=== PATIENT | female | born 1935 | race Caucasian/White ===

== ENCOUNTER 2018-12-28 20:52 | Inpatient (IN) | payer OTHER ==
[~2018-12-28] VITALS: Ht 157.5 cm; Wt 75.5 kg
[2018-12-28 21:31] VITALS: BP_SYST 162
[2018-12-28] MEDS ORDERED: NACL 0.9% 1,000 ML IV ONE (22:15)
[2018-12-28 22:38] LABS: BASOPHILS % (AUTO) 0.2 % (0.0-2.0); EOSINOPHILS % (AUTO) 0.3 % (0.0-4.0); HEMATOCRIT 37.8 % (36-48); HEMOGLOBIN 12.3 g/dL (12.0-16.0); LYMPHOCYTES # (AUTO) 0.7 K/uL (1.0-5.5); LYMPHOCYTES % (AUTO) 10.5 % (20.5-51.5); MEAN CORPUSCULAR HEMOGLOBIN 34 pg (27-31); MEAN CORPUSCULAR HGB CONC 32 % (32-36); MEAN CORPUSCULAR VOLUME 104 fL (79.0-98.0); MONOCYTES # (AUTO) 0.3 K/uL (0.0-1.0); MONOCYTES % (AUTO) 4.5 % (1.7-9.3); NEUTROPHILS # (AUTO) 5.8 K/uL (1.8-7.7); NEUTROPHILS % (AUTO) 84.5 % (40.0-70.0); PLATELET COUNT (AUTO) 187 K/uL (130-430); RED BLOOD CELL COUNT(AUTO) 3.64 MIL/uL (4.2-6.2); RED CELL DISTRIBUTION WIDTH 15.5 % (9.0-15.0); WHITE BLOOD COUNT (AUTO) 6.9 K/uL (4.8-10.8)
[2018-12-28 22:47] LABS: ANION GAP 6 (5-15); CALCIUM 9.1 mg/dL (8.4-11.0); CHLORIDE 102 mmol/L (98-107); CREATININE 1.22 mg/dL (0.55-1.30); GLUCOSE 204 mg/dL (70-99); POTASSIUM 3.7 mmol/L (3.5-5.1); SODIUM SERUM 135 mmol/L (136-145); UREA NITROGEN, BLOOD 20 mg/dL (8-21)
[2018-12-28 22:48] LABS: INR 1.1 (0.8-1.2); PROTHROMBIN TIME 11.1 SECS (9.5-12.5)
[2018-12-28 22:52] LABS: ALANINE AMINOTRANSFERASE 17 U/L (12-78); ALBUMIN 3.2 g/dL (3.4-4.8); ASPARTATE AMINOTRANSFERASE 22 U/L (10-37); TOTAL BILIRUBIN 0.7 mg/dL (0.0-1.0)
[2018-12-28] MEDS ORDERED: ALBU2.5V7 INH (23:53)
[2018-12-28] MEDS ORDERED: LIP40 PO (23:54)
[2018-12-28] MEDS ORDERED: BENZ-16 PO (23:55)
[2018-12-28] MEDS ORDERED: LOT1%CR30 TP (23:57)
[2018-12-28] MEDS ORDERED: DOCU-144 PO (23:57)
[2018-12-28] MEDS ORDERED: APIX2.5T PO (23:58)
[2018-12-28] MEDS ORDERED: IRON1CAP18 PO (23:58)
[2018-12-28] MEDS ORDERED: VANC50SO PO (23:59)
[2018-12-29] VITALS (24 sets, daily range): BP systolic 99–224
[2018-12-29] MEDS ORDERED: FOLI0.4T2 PO
[2018-12-29] MEDS ORDERED: FURO-150 PO (00:02)
[2018-12-29] MEDS ORDERED: GABA-531 PO (00:02)
[2018-12-29] MEDS ORDERED: HYDR-4039 PO (00:03)
[2018-12-29] MEDS ORDERED: ONDA4TAB5 PO (00:16)
[2018-12-29] MEDS ORDERED: SENN8.6T19 PO (00:16)
[2018-12-29] MEDS ORDERED: FERR159T2 PO (00:16)
[2018-12-29] MEDS ORDERED: ALBU8.5H8 INH (00:16)
[2018-12-29] MEDS ORDERED: NITR1PAT76 TD (00:16)
[2018-12-29] MEDS ORDERED: POLY17PO4 PO (00:16)
[2018-12-29] MEDS ORDERED: PRO40 PO (00:16)
[2018-12-29] MEDS ORDERED: MIRT7.5T11 PO (00:16)
[2018-12-29] MEDS ORDERED: METO25TA3 PO (00:16)
[2018-12-29] MEDS ORDERED: EPOE1VIA13 SUBCUT (00:16)
[2018-12-29] MEDS ORDERED: LINA5TAB2 PO (00:18)
[2018-12-29] MEDS ORDERED: TEMAZEPAM 15 MG CAPSULE PO PRN (00:30)
[2018-12-29] MEDS ORDERED: ONDANSETRON HCL 4 MG/2 ML VIAL IVP PRN ×2 (00:30→06:30)
[2018-12-29] MEDS ORDERED: METOCLOPRAMIDE HCL 10 MG/2 ML VIAL IVP PRN (00:30)
[2018-12-29] MEDS ORDERED: LABETALOL 100 MG/ 20ML VIAL ONE (03:16)
[2018-12-29] MEDS ORDERED: ACETAMINOPHEN 325 MG TABLET PO PRN (06:30)
[2018-12-29] MEDS ORDERED: ALBUTEROL SULFATE 0.083% 2.5 MG/3 ML VIAL.NEB INH PRN ×2 (06:30→06:45)
[2018-12-29] MEDS ORDERED: BENZONATATE 100 MG CAPSULE (TESSALON) PO SCH (06:45)
[2018-12-29] MEDS ORDERED: INSULIN REGULAR, HUMAN 100 UNITS/ML, 10 ML VIAL (novoLIN R) SUBCUT PRN (06:45)
[2018-12-29] MEDS ORDERED: LORazepam 2 MG/ML VIAL ONE (07:38)
[2018-12-29] MEDS ORDERED: ENALAPRILAT DIHYDRATE 1.25 MG/ML VIAL ONE (07:39)
[2018-12-29] MEDS: ENALAPRILAT DIHYDRATE 1.25 MG/ML VIAL IVP PRN (08:45)
[2018-12-29] MEDS: POLYETHYLENE GLYCOL 3350, 17 GM/ POWD.PACK PO SCH (09:00)
[2018-12-29] MEDS: METOPROLOL SUCCINATE 25 MG TAB.SR.24H (TOPROL XL) PO SCH ×2 (09:00→21:00)
[2018-12-29] MEDS ORDERED: APIXABAN 2.5 MG TABLET PO SCH (09:00)
[2018-12-29] MEDS: PANTOPRAZOLE SODIUM 40 MG TAB PO SCH (09:00)
[2018-12-29] MEDS: DOCUSATE SODIUM 100 MG CAPSULE PO SCH (09:00)
[2018-12-29] MEDS ORDERED: FUROSEMIDE 20 MG TABLET PO SCH (09:00)
[2018-12-29] MEDS: hydrALAZINE HCL 25 MG TABLET PO SCH ×2 (09:00→21:00)
[2018-12-29] MEDS: LABETALOL 100 MG/ 20ML VIAL IVP PRN (09:38)
[2018-12-29] MEDS ORDERED: DEXTROSE 50% JECT 50 ML DISP.SYRIN IVP PRN (09:45)
[2018-12-29 10:49] LABS: CHLORIDE 98 mmol/L (98-107); POTASSIUM 3.7 mmol/L (3.5-5.1); SODIUM SERUM 139 mmol/L (136-145)
[2018-12-29 10:50] LABS: ANION GAP 21 (5-15); CALCIUM 8.8 mg/dL (8.4-11.0); CREATININE 1.48 mg/dL (0.55-1.30); GLUCOSE 214 mg/dL (70-99); HEMATOCRIT 38.8 % (36-48); HEMOGLOBIN 12.5 g/dL (12.0-16.0); MEAN CORPUSCULAR HEMOGLOBIN 34 pg (27-31); MEAN CORPUSCULAR HGB CONC 32 % (32-36); MEAN CORPUSCULAR VOLUME 105 fL (79.0-98.0); NEUTROPHILS % (AUTO) 88.4 % (40.0-70.0); PLATELET COUNT (AUTO) 196 K/uL (130-430); RED BLOOD CELL COUNT(AUTO) 3.69 MIL/uL (4.2-6.2); RED CELL DISTRIBUTION WIDTH 15.7 % (9.0-15.0); UREA NITROGEN, BLOOD 19 mg/dL (8-21); WHITE BLOOD COUNT (AUTO) 7.1 K/uL (4.8-10.8)
[2018-12-29 10:51] LABS: BASOPHILS % (AUTO) 0.1 % (0.0-2.0); EOSINOPHILS % (AUTO) 0.1 % (0.0-4.0); LYMPHOCYTES # (AUTO) 0.6 K/uL (1.0-5.5); LYMPHOCYTES % (AUTO) 7.8 % (20.5-51.5); MONOCYTES # (AUTO) 0.3 K/uL (0.0-1.0); MONOCYTES % (AUTO) 3.6 % (1.7-9.3); NEUTROPHILS # (AUTO) 6.3 K/uL (1.8-7.7)
[2018-12-29 10:59] LABS: ALANINE AMINOTRANSFERASE 16 U/L (12-78); ASPARTATE AMINOTRANSFERASE 24 U/L (10-37); TOTAL BILIRUBIN 0.8 mg/dL (0.0-1.0)
[2018-12-29 11:00] LABS: ALBUMIN 3.2 g/dL (3.4-4.8)
[2018-12-29 11:15] LABS: CHOLESTEROL 118 mg/dL (<200); HDL CHOLESTEROL 33 mg/dL (>55); LDL CHOLESTEROL 76 mg/dL (<100); TRIGLYCERIDES 91 mg/dL (30-150)
[2018-12-29] MEDS: NITROGLYCERIN 0.4 MG/HR PATCH.TD24 TD SCH (12:14)
[2018-12-29] MEDS: LORazepam 2 MG/ML VIAL IVP PRN ×4 (12:36→23:13)
[2018-12-29] MEDS ORDERED: FUROSEMIDE 20 MG/2 ML VIAL IVP ONE (13:30)
[2018-12-29] MEDS ORDERED: ACETAMINOPHEN 650 MG SUPP.RECT RC PRN (14:30)
[2018-12-29] MEDS: CLOTRIMAZOLE 1% TOPICAL CREAM 15 GM TP SCH ×2 (15:56→21:00)
[2018-12-29] MEDS: D5NS 1,000 ML IV SCH (15:59)
[2018-12-29] MEDS: INSULIN REGULAR, HUMAN 100 UNITS/ML, 10 ML VIAL (novoLIN R) SUBCUT PRN (18:35)
[2018-12-29] MEDS: GABAPENTIN 300 MG CAPSULE PO SCH (21:00)
[2018-12-29] MEDS: ATORVASTATIN 20 MG TABLET PO SCH (21:00)
[2018-12-29] MEDS: APIXABAN 2.5 MG TABLET PO SCH (21:00)
[2018-12-29] MEDS: FUROSEMIDE 20 MG/2 ML VIAL IVP SCH (21:00)
[2018-12-29] MEDS: levETIRAcetam 250 MG in NS 100 ML IV SCH (21:19)
[2018-12-30] VITALS (23 sets, daily range): BP systolic 101–151
[2018-12-30] MEDS: LORazepam 2 MG/ML VIAL IVP PRN ×3 (01:15→05:08)
[2018-12-30 02:36] LABS: BILIRUBIN,URINE 1+ (NEGATIVE); BLOOD, URINE 3+ (NEGATIVE); CLARITY/URINE HAZY (CLEAR); COLOR,URINE YELLOW (YELLOW); GLUCOSE,URINE NEGATIVE (NEGATIVE); KETONES,URINE NEGATIVE (NEGATIVE); LEUKOCYTE ESTERASE ,URINE TRACE (NEGATIVE); NITRITE, URINE NEGATIVE (NEGATIVE); PH,URINE 6.5 (5.0-8.0); PROTEIN URINE 3+ (NEGATIVE); UROBILINOGEN,URINE 0.2 (0.2-1.0)
[2018-12-30 02:47] LABS: RBC,URINE >100 /HPF (0-3)
[2018-12-30 02:48] LABS: BACTERIA,URINE FEW /HPF (None Seen); HYALINE CASTS, URINE 0-10 /LPF (None Seen)
[2018-12-30] MEDS: D5NS 1,000 ML IV SCH (05:08)
[2018-12-30] MEDS: INSULIN REGULAR, HUMAN 100 UNITS/ML, 10 ML VIAL (novoLIN R) SUBCUT PRN (05:15)
[2018-12-30] MEDS ORDERED: 0.45% NS 500 ML IV ONE (08:30)
[2018-12-30] MEDS: LISINOPRIL 5 MG TABLET PO SCH (09:00)
[2018-12-30] MEDS: POLYETHYLENE GLYCOL 3350, 17 GM/ POWD.PACK PO SCH (09:00)
[2018-12-30] MEDS: PANTOPRAZOLE SODIUM 40 MG TAB PO SCH (09:00)
[2018-12-30] MEDS: DOCUSATE SODIUM 100 MG CAPSULE PO SCH (09:00)
[2018-12-30] MEDS: hydrALAZINE HCL 25 MG TABLET PO SCH ×2 (09:00→21:00)
[2018-12-30] MEDS: APIXABAN 2.5 MG TABLET PO SCH ×2 (09:00→21:00)
[2018-12-30] MEDS: CLOTRIMAZOLE 1% TOPICAL CREAM 15 GM TP SCH ×2 (09:00→21:00)
[2018-12-30] MEDS: METOPROLOL SUCCINATE 25 MG TAB.SR.24H (TOPROL XL) PO SCH ×2 (09:00→21:00)
[2018-12-30] MEDS: levETIRAcetam 250 MG in NS 100 ML IV SCH ×2 (09:12→21:25)
[2018-12-30] MEDS: FUROSEMIDE 20 MG/2 ML VIAL IVP SCH (09:13)
[2018-12-30] MEDS: NITROGLYCERIN 0.4 MG/HR PATCH.TD24 TD SCH ×2 (09:13→09:59)
[2018-12-30] MEDS: cefTRIAXone 1 GM in D5W 50 ML IV SCH (09:58)
[2018-12-30] MEDS: ATORVASTATIN 20 MG TABLET PO SCH (21:00)
[2018-12-30] MEDS: GABAPENTIN 300 MG CAPSULE PO SCH (21:00)
[2018-12-31] VITALS (24 sets, daily range): BP systolic 116–156
[2018-12-31 07:23] LABS: ANION GAP 11 (5-15); CALCIUM 8.8 mg/dL (8.4-11.0); CHLORIDE 104 mmol/L (98-107); CREATININE 1.95 mg/dL (0.55-1.30); GLUCOSE 95 mg/dL (70-99); POTASSIUM 4.1 mmol/L (3.5-5.1); SODIUM SERUM 142 mmol/L (136-145); UREA NITROGEN, BLOOD 33 mg/dL (8-21)
[2018-12-31 07:36] LABS: ALANINE AMINOTRANSFERASE 13 U/L (12-78); ALBUMIN 2.6 g/dL (3.4-4.8); ASPARTATE AMINOTRANSFERASE 23 U/L (10-37); TOTAL BILIRUBIN 0.7 mg/dL (0.0-1.0)
[2018-12-31] MEDS: cefTRIAXone 1 GM in D5W 50 ML IV SCH (08:40)
[2018-12-31] MEDS: hydrALAZINE HCL 25 MG TABLET PO SCH ×2 (09:00→21:27)
[2018-12-31] MEDS: DOCUSATE SODIUM 100 MG CAPSULE PO SCH (09:00)
[2018-12-31] MEDS: LISINOPRIL 5 MG TABLET PO SCH (09:00)
[2018-12-31] MEDS: POLYETHYLENE GLYCOL 3350, 17 GM/ POWD.PACK PO SCH (09:00)
[2018-12-31] MEDS: CLOTRIMAZOLE 1% TOPICAL CREAM 15 GM TP SCH ×2 (09:00→21:31)
[2018-12-31] MEDS ORDERED: FUROSEMIDE 20 MG/2 ML VIAL IVP SCH (09:00)
[2018-12-31] MEDS: NITROGLYCERIN 0.4 MG/HR PATCH.TD24 TD SCH (09:00)
[2018-12-31] MEDS: APIXABAN 2.5 MG TABLET PO SCH ×2 (09:00→21:28)
[2018-12-31] MEDS: PANTOPRAZOLE SODIUM 40 MG TAB PO SCH (09:00)
[2018-12-31] MEDS ORDERED: NACL 0.9% 1,000 ML IV ONE (09:00)
[2018-12-31] MEDS: METOPROLOL SUCCINATE 25 MG TAB.SR.24H (TOPROL XL) PO SCH ×2 (09:00→21:29)
[2018-12-31] MEDS: levETIRAcetam 250 MG in NS 100 ML IV SCH ×2 (09:18→21:17)
[2018-12-31 09:44] LABS: BASOPHILS % (AUTO) 0.2 % (0.0-2.0); HEMATOCRIT 33.4 % (36-48); LYMPHOCYTES % (AUTO) 13.3 % (20.5-51.5); MEAN CORPUSCULAR HEMOGLOBIN 34 pg (27-31); MEAN CORPUSCULAR HGB CONC 33 % (32-36); MEAN CORPUSCULAR VOLUME 104 fL (79.0-98.0); NEUTROPHILS # (AUTO) 4.8 K/uL (1.8-7.7); NEUTROPHILS % (AUTO) 78.5 % (40.0-70.0); PLATELET COUNT (AUTO) 163 K/uL (130-430); RED BLOOD CELL COUNT(AUTO) 3.21 MIL/uL (4.2-6.2); RED CELL DISTRIBUTION WIDTH 15.2 % (9.0-15.0); WHITE BLOOD COUNT (AUTO) 6.1 K/uL (4.8-10.8)
[2018-12-31 09:45] LABS: EOSINOPHILS # (AUTO) 0.1 K/uL (0.0-0.4); LYMPHOCYTES # (AUTO) 0.8 K/uL (1.0-5.5); MONOCYTES # (AUTO) 0.4 K/uL (0.0-1.0)
[2018-12-31] MEDS: NACL 0.9% 1,000 ML IV SCH ×2 (11:11→21:18)
[2018-12-31] MEDS: ATORVASTATIN 20 MG TABLET PO SCH (21:26)
[2018-12-31] MEDS: GABAPENTIN 300 MG CAPSULE PO SCH (21:26)
[2019-01-01] VITALS (16 sets, daily range): BP systolic 154–195
[2019-01-01] MEDS: NACL 0.9% 1,000 ML IV SCH ×2 (05:18→16:20)
[2019-01-01] MEDS: ENALAPRILAT DIHYDRATE 1.25 MG/ML VIAL IVP PRN ×3 (05:18→17:57)
[2019-01-01 07:28] LABS: ALANINE AMINOTRANSFERASE 13 U/L (12-78); ALBUMIN 2.5 g/dL (3.4-4.8); ANION GAP 9 (5-15); ASPARTATE AMINOTRANSFERASE 23 U/L (10-37); CALCIUM 8.7 mg/dL (8.4-11.0); CHLORIDE 105 mmol/L (98-107); CREATININE 1.42 mg/dL (0.55-1.30); GLUCOSE 106 mg/dL (70-99); POTASSIUM 3.8 mmol/L (3.5-5.1); SODIUM SERUM 140 mmol/L (136-145); TOTAL BILIRUBIN 0.8 mg/dL (0.0-1.0); UREA NITROGEN, BLOOD 33 mg/dL (8-21)
[2019-01-01] MEDS: APIXABAN 2.5 MG TABLET PO SCH ×2 (08:33→23:26)
[2019-01-01 08:34] LABS: RED BLOOD CELL COUNT(AUTO) 3.13 MIL/uL (4.2-6.2)
[2019-01-01] MEDS: DOCUSATE SODIUM 100 MG CAPSULE PO SCH (08:34)
[2019-01-01] MEDS: METOPROLOL SUCCINATE 25 MG TAB.SR.24H (TOPROL XL) PO SCH ×2 (08:34→23:17)
[2019-01-01] MEDS: PANTOPRAZOLE SODIUM 40 MG TAB PO SCH (08:34)
[2019-01-01] MEDS: hydrALAZINE HCL 25 MG TABLET PO SCH ×2 (08:34→23:16)
[2019-01-01] MEDS: LISINOPRIL 5 MG TABLET PO SCH (08:34)
[2019-01-01 08:35] LABS: HEMATOCRIT 32.5 % (36-48); HEMOGLOBIN 10.8 g/dL (12.0-16.0); MEAN CORPUSCULAR HEMOGLOBIN 35 pg (27-31); MEAN CORPUSCULAR HGB CONC 33 % (32-36); MEAN CORPUSCULAR VOLUME 104 fL (79.0-98.0); NEUTROPHILS % (AUTO) 80.9 % (40.0-70.0); PLATELET COUNT (AUTO) 174 K/uL (130-430)
[2019-01-01] MEDS: cefTRIAXone 1 GM in D5W 50 ML IV SCH (08:35)
[2019-01-01] MEDS: POLYETHYLENE GLYCOL 3350, 17 GM/ POWD.PACK PO SCH (08:35)
[2019-01-01 08:36] LABS: BASOPHILS % (AUTO) 0.2 % (0.0-2.0); EOSINOPHILS # (AUTO) 0.1 K/uL (0.0-0.4); EOSINOPHILS % (AUTO) 1.4 % (0.0-4.0); LYMPHOCYTES # (AUTO) 0.6 K/uL (1.0-5.5); LYMPHOCYTES % (AUTO) 10.8 % (20.5-51.5); MONOCYTES # (AUTO) 0.4 K/uL (0.0-1.0); MONOCYTES % (AUTO) 6.7 % (1.7-9.3); NEUTROPHILS # (AUTO) 4.9 K/uL (1.8-7.7)
[2019-01-01] MEDS: NITROGLYCERIN 0.4 MG/HR PATCH.TD24 TD SCH (08:37)
[2019-01-01] MEDS: CLOTRIMAZOLE 1% TOPICAL CREAM 15 GM TP SCH ×2 (09:00→23:17)
[2019-01-01] MEDS: levETIRAcetam 250 MG in NS 100 ML IV SCH ×2 (09:34→23:15)
[2019-01-01] MEDS: LABETALOL 100 MG/ 20ML VIAL IVP PRN (16:10)
[2019-01-01] MEDS: ATORVASTATIN 20 MG TABLET PO SCH (23:16)
[2019-01-01] MEDS: GABAPENTIN 300 MG CAPSULE PO SCH (23:16)
[2019-01-01] MEDS: INSULIN REGULAR, HUMAN 100 UNITS/ML, 10 ML VIAL (novoLIN R) SUBCUT PRN (23:22)
[2019-01-01] MEDS: LORazepam 2 MG/ML VIAL IVP PRN (23:44)
[2019-01-02 00:09] VITALS: BP_SYST 166
[2019-01-02] MEDS: NACL 0.9% 1,000 ML IV SCH ×3 (01:17→22:40)
[2019-01-02] MEDS: LABETALOL 100 MG/ 20ML VIAL IVP PRN (01:19)
[2019-01-02 07:17] LABS: ALANINE AMINOTRANSFERASE 13 U/L (12-78); ALBUMIN 2.4 g/dL (3.4-4.8); ANION GAP 2 (5-15); ASPARTATE AMINOTRANSFERASE 23 U/L (10-37); CALCIUM 8.3 mg/dL (8.4-11.0); CHLORIDE 110 mmol/L (98-107); CREATININE 1.19 mg/dL (0.55-1.30); GLUCOSE 142 mg/dL (70-99); POTASSIUM 3.5 mmol/L (3.5-5.1); SODIUM SERUM 139 mmol/L (136-145); TOTAL BILIRUBIN 0.5 mg/dL (0.0-1.0); UREA NITROGEN, BLOOD 23 mg/dL (8-21)
[2019-01-02 07:58] LABS: HEMATOCRIT 30.4 % (36-48); RED BLOOD CELL COUNT(AUTO) 2.93 MIL/uL (4.2-6.2); WHITE BLOOD COUNT (AUTO) 6.3 K/uL (4.8-10.8)
[2019-01-02 07:59] LABS: BASOPHILS % (AUTO) 0.3 % (0.0-2.0); EOSINOPHILS % (AUTO) 0.3 % (0.0-4.0); LYMPHOCYTES # (AUTO) 0.6 K/uL (1.0-5.5); LYMPHOCYTES % (AUTO) 9.8 % (20.5-51.5); MEAN CORPUSCULAR HEMOGLOBIN 34 pg (27-31); MEAN CORPUSCULAR HGB CONC 33 % (32-36); MEAN CORPUSCULAR VOLUME 104 fL (79.0-98.0); MONOCYTES # (AUTO) 0.5 K/uL (0.0-1.0); MONOCYTES % (AUTO) 7.6 % (1.7-9.3); NEUTROPHILS # (AUTO) 5.2 K/uL (1.8-7.7); PLATELET COUNT (AUTO) 185 K/uL (130-430); RED CELL DISTRIBUTION WIDTH 14.8 % (9.0-15.0)
[2019-01-02 08:00] VITALS: BP_SYST 116
[2019-01-02] MEDS: cefTRIAXone 1 GM in D5W 50 ML IV SCH (08:56)
[2019-01-02] MEDS: POLYETHYLENE GLYCOL 3350, 17 GM/ POWD.PACK PO SCH (09:00)
[2019-01-02] MEDS: APIXABAN 2.5 MG TABLET PO SCH ×2 (09:00→22:28)
[2019-01-02] MEDS: DOCUSATE SODIUM 100 MG CAPSULE PO SCH (09:00)
[2019-01-02] MEDS: LISINOPRIL 5 MG TABLET PO SCH (09:00)
[2019-01-02] MEDS: PANTOPRAZOLE SODIUM 40 MG TAB PO SCH (09:00)
[2019-01-02] MEDS: METOPROLOL SUCCINATE 25 MG TAB.SR.24H (TOPROL XL) PO SCH ×2 (09:00→22:29)
[2019-01-02] MEDS: hydrALAZINE HCL 25 MG TABLET PO SCH ×2 (09:00→22:30)
[2019-01-02] MEDS: levETIRAcetam 250 MG in NS 100 ML IV SCH ×2 (09:38→22:40)
[2019-01-02] MEDS: CLOTRIMAZOLE 1% TOPICAL CREAM 15 GM TP SCH ×2 (09:39→21:00)
[2019-01-02] MEDS: NITROGLYCERIN 0.4 MG/HR PATCH.TD24 TD SCH (09:46)
[2019-01-02 12:25] VITALS: BP_SYST 131
[2019-01-02 13:30] VITALS: BP_SYST 131
[2019-01-02 16:32] VITALS: BP_SYST 142
[2019-01-02] MEDS: ATORVASTATIN 20 MG TABLET PO SCH (22:27)
[2019-01-02] MEDS: GABAPENTIN 300 MG CAPSULE PO SCH (22:30)
[2019-01-03 00:54] VITALS: BP_SYST 157
[2019-01-03] MEDS: NACL 0.9% 1,000 ML IV SCH ×2 (05:46→17:00)
[2019-01-03 07:31] LABS: ANION GAP 9 (5-15); CALCIUM 8.2 mg/dL (8.4-11.0); CHLORIDE 113 mmol/L (98-107); CREATININE 1.29 mg/dL (0.55-1.30); GLUCOSE 109 mg/dL (70-99); POTASSIUM 3.7 mmol/L (3.5-5.1); SODIUM SERUM 145 mmol/L (136-145); UREA NITROGEN, BLOOD 21 mg/dL (8-21)
[2019-01-03 07:49] LABS: ALANINE AMINOTRANSFERASE 14 U/L (12-78); ALBUMIN 2.3 g/dL (3.4-4.8); ASPARTATE AMINOTRANSFERASE 21 U/L (10-37); TOTAL BILIRUBIN 0.4 mg/dL (0.0-1.0)
[2019-01-03] MEDS: cefTRIAXone 1 GM in D5W 50 ML IV SCH (08:34)
[2019-01-03] MEDS: NITROGLYCERIN 0.4 MG/HR PATCH.TD24 TD SCH (08:35)
[2019-01-03] MEDS: POLYETHYLENE GLYCOL 3350, 17 GM/ POWD.PACK PO SCH (08:35)
[2019-01-03] MEDS: hydrALAZINE HCL 25 MG TABLET PO SCH (08:36)
[2019-01-03] MEDS: DOCUSATE SODIUM 100 MG CAPSULE PO SCH (08:36)
[2019-01-03] MEDS: LISINOPRIL 5 MG TABLET PO SCH (08:36)
[2019-01-03] MEDS: APIXABAN 2.5 MG TABLET PO SCH (08:37)
[2019-01-03] MEDS: PANTOPRAZOLE SODIUM 40 MG TAB PO SCH (08:37)
[2019-01-03] MEDS: METOPROLOL SUCCINATE 25 MG TAB.SR.24H (TOPROL XL) PO SCH (08:37)
[2019-01-03 09:08] VITALS: BP_SYST 147
[2019-01-03 09:20] LABS: HEMOGLOBIN 9.9 g/dL (12.0-16.0); MEAN CORPUSCULAR HEMOGLOBIN 34 pg (27-31); MEAN CORPUSCULAR HGB CONC 33 % (32-36); MEAN CORPUSCULAR VOLUME 104 fL (79.0-98.0); PLATELET COUNT (AUTO) 177 K/uL (130-430); RED BLOOD CELL COUNT(AUTO) 2.89 MIL/uL (4.2-6.2); RED CELL DISTRIBUTION WIDTH 15.1 % (9.0-15.0); WHITE BLOOD COUNT (AUTO) 5.6 K/uL (4.8-10.8)
[2019-01-03 09:21] LABS: BASOPHILS % (AUTO) 0.2 % (0.0-2.0); EOSINOPHILS # (AUTO) 0.1 K/uL (0.0-0.4); EOSINOPHILS % (AUTO) 2.4 % (0.0-4.0); LYMPHOCYTES # (AUTO) 0.8 K/uL (1.0-5.5); LYMPHOCYTES % (AUTO) 14.1 % (20.5-51.5); MONOCYTES # (AUTO) 0.5 K/uL (0.0-1.0); MONOCYTES % (AUTO) 8.9 % (1.7-9.3); NEUTROPHILS # (AUTO) 4.1 K/uL (1.8-7.7); NEUTROPHILS % (AUTO) 74.4 % (40.0-70.0)
[2019-01-03] MEDS: levETIRAcetam 250 MG in NS 100 ML IV SCH (09:30)
[2019-01-03] MEDS: CLOTRIMAZOLE 1% TOPICAL CREAM 15 GM TP SCH (09:31)
[2019-01-03 12:54] VITALS: BP_SYST 129
[2019-01-03 16:00] VITALS: BP_SYST 137
[2019-01-03 18:00] VITALS: BP_SYST 137
== END 2019-01-03 19:10 | DRG 100 ==
LOC: SED 20:52 → STU 12-29 00:30 → SIC 12-29 07:51 → STU 01-01 13:35 → SMU 01-02 12:16
PROVIDERS: ADMIT Internal Medicine; ATTEND Internal Medicine
DX: R56.9 Unspecified convulsions (principal); I50.31 Acute diastolic (congestive) heart failure; N39.0 Urinary tract infection, site not specified; I48.2 Chronic atrial fibrillation; I11.0 Hypertensive heart disease with heart failure; E11.65 Type 2 diabetes mellitus with hyperglycemia; E66.9 Obesity, unspecified; E78.5 Hyperlipidemia, unspecified; K21.9 Gastro-esophageal reflux disease without esophagitis; E86.0 Dehydration; Z85.43 Personal history of malignant neoplasm of ovary; Z86.73 Personal history of transient ischemic attack (TIA), and cerebral infarction without residual deficits; Z68.30 Body mass index [BMI] 30.0-30.9, adult; Z79.51 Long term (current) use of inhaled steroids; Z79.899 Other long term (current) drug therapy; Z83.3 Family history of diabetes mellitus; Z82.49 Family history of ischemic heart disease and other diseases of the circulatory system
CPT/HCPCS: 36415; 70450-TC; 71045; 80053; 80061; 81000-TC; 82140-TC; 82533; 82550-TC; 82962; 83036; 83880; 84484; 85025; 85610-TC; 87081; 92610-GN; 93005; 93306; 93880; 94640; 94760; 95816; 96360; 97110-GP; 97116-GP; 97530-GP; 99285; G0378; J0696; J1815; J1940; J1953; J2060; J2405; J3490; J7030; J7042; J7060; J7613